=== PATIENT | male | born 1940 | race Caucasian/White ===

== ENCOUNTER → 2023-07-27 12:45 | Outpatient (REF) | payer MEDICARE, OTHER, SELFPAY | LOC: HWRCS 12:45 | PROVIDERS: ATTENDING PHYSICIAN Family Medicine | DX: R01.1 Cardiac murmur, unspecified (principal) | CPT/HCPCS: 93306 ==

== ENCOUNTER → 2023-10-22 07:36 | Outpatient (REF) | payer MEDICARE, OTHER, SELFPAY ==
[2023-10-22 08:53] LABS: Urine Albumin Negative (Neg - Trace); Urine Bilirubin Negative (Negative); Urine Character Clear (Clear); Urine Color Straw; Urine Glucose Negative (Negative); Urine Ketone Negative (Negative); Urine Leukocyte Negative (Negative); Urine Nitrite Negative (Negative); Urine Occult Blood Negative (Negative); Urine Specific Gravity 1.015 (<1.030); Urine Urobilinogen Negative (Neg - 1+)
[2023-10-22 08:55] LABS: % Basophils 0.6 % (0-2); % Eosinophils 3.4 % (0-6); % Immature Granulocytes 0.3 % (0-0.5); % Lymphocytes 20.9 % (20.5-51.1); % Monocytes 8.7 % (1.7-9.3); % Neutrophils 66.1 % (42.2-75.2); Absolute Eosinophils 0.2 10^3/uL (0-0.7); Absolute Lymphocytes 1.3 10^3/uL (1.2-3.4); Absolute Monocytes 0.5 10^3/uL (0.1-0.6); Absolute Neutrophils 4.1 10^3/uL (1.4-6.5); Hematocrit 42.7 % (39.0-52.0); Hemoglobin 14.2 g/dL (13.0-18.0); Mean Corp Hgb Conc. 33.3 g/dL (33.0-37.0); Mean Corpuscular Hgb 30.7 pg (27.0-31.0); Mean Corpuscular Volume 92.2 fL (80.0-94.0); Mean Platelet Volume 9.8 fL (7.4-10.4); Nucleated Red Blood Cells % 0 % (-); Platelet Count 191 10^3/uL (130-400); Red Blood Cell Count 4.63 10^6/uL (4.70-6.10); Red Cell Dist. Width 13.7 % (11.5-14.5); White Blood Cell Count 6.2 10^3/uL (4.8-10.8)
[2023-10-22 09:34] LABS: ALT (SGPT) 31 U/L (0-50); AST (SGOT) 40 U/L (17-59); Albumin 3.9 g/dl (3.5-5.0); Alkaline Phosphatase 79 U/L (38-126); Amylase 80 U/L (30-110); Blood Urea Nitrogen 24 mg/dl (9-20); Calcium 9.1 mg/dl (8.4-10.2); Carbon Dioxide 30 mmol/L (22-30); Chloride 103 mmol/L (98-107); Creatine Phosphokinase 337 U/L (55-170); GGTP 13 U/L (15-73); Glucose 86 mg/dl (70-99); HDL Cholesterol 50 mg/dl; Iron 80 ug/dl (49-181); LDL Cholesterol, Calculated 104 mg/dl; Lipase 66 U/L (23-300); Potassium 4.2 mmol/L (3.5-5.1); Sodium 140 mmol/L (135-145); Total Bilirubin 0.5 mg/dl (0.2-1.3); Total Cholesterol 165 mg/dl (50-199); Total Protein 6.5 g/dl (6.3-8.2); Triglyceride 56 mg/dl (10-149); Uric Acid 5.2 mg/dl (3.5-8.5); Very Low Density Lipoprotein 11 mg/dl (0-30); eGFR > 60.00
[2023-10-22 09:36] LABS: Erythrocyte Sed Rate 9 mm/hour (0-20)
[2023-10-22 09:44] LABS: Percent Saturation 32 % (20-50); Total Iron Binding Capacity 246 ug/dl (261-462)
[2023-10-22 10:09] LABS: C-Reactive Protein < 5.00 mg/L (0.0-10.00)
[2023-10-22 10:24] LABS: Vitamin D, 25-OH*** 48.8 ng/mL (30-80)
[2023-10-22 10:37] LABS: PSA, Total - Diagnostic 3.47 ng/ml (0.0-4.0); TSH Reflex To Free T4 1.18 uIU/ml (0.47-4.68)
[2023-10-22 10:46] LABS: Ferritin 97.1 ng/ml (17.9-464.0)
[2023-10-22 11:17] LABS: Folate 12.7 ng/ml (2.76-20); Vitamin B12 613 pg/ml (239-931)
[2023-10-22 12:10] LABS: Glycohemoglobin (HgbA1c) 5.8 % (4.0-5.6)
[2023-10-22 16:39] LABS: Rheumatoid Agglutinin Less Than 10 IU (<10 IU)
[2023-10-23 21:05] LABS: Zinc 91.7 ug/dL (60.0-120.0)
== END ==
LOC: HWLAB 07:36
PROVIDERS: ATTENDING PHYSICIAN Internal Medicine; FAMILY PHYSICIAN Family Medicine
DX: D50.9 Iron deficiency anemia, unspecified (principal); E78.2 Mixed hyperlipidemia; N40.1 Benign prostatic hyperplasia with lower urinary tract symptoms; R35.0 Frequency of micturition; R97.20 Elevated prostate specific antigen [PSA]; E11.9 Type 2 diabetes mellitus without complications; R94.5 Abnormal results of liver function studies; R74.8 Abnormal levels of other serum enzymes; E03.9 Hypothyroidism, unspecified; M10.9 Gout, unspecified; E60 Dietary zinc deficiency; E55.9 Vitamin D deficiency, unspecified; M12.9 Arthropathy, unspecified; D64.9 Anemia, unspecified; E53.8 Deficiency of other specified B group vitamins; E61.1 Iron deficiency; E83.42 Hypomagnesemia; N39.0 Urinary tract infection, site not specified; Z12.5 Encounter for screening for malignant neoplasm of prostate
CPT/HCPCS: 36415; 80053; 80061; 81003; 82150; 82306; 82550; 82607; 82728; 82746; 82977; 83036; 83540; 83550; 83690; 83735; 84153; 84443; 84550; 84630; 85025; 85045; 85652; 86140; 86430

== ENCOUNTER → 2023-12-05 13:11 | Outpatient (REF) | payer MEDICARE, OTHER, SELFPAY | LOC: RCS 13:11 | PROVIDERS: ATTENDING PHYSICIAN Internal Medicine Cardiovascular Disease; FAMILY PHYSICIAN Family Medicine | DX: I49.9 Cardiac arrhythmia, unspecified (principal); I47.10 Supraventricular tachycardia, unspecified; I49.3 Ventricular premature depolarization | CPT/HCPCS: 93225; 93226 ==

== ENCOUNTER → 2024-04-16 08:26 | Outpatient (REF) | payer MEDICARE, OTHER, SELFPAY ==
[2024-04-16 09:45] LABS: % Basophils 0.4 % (0-2); % Eosinophils 3.3 % (0-6); % Immature Granulocytes 0.3 % (0-0.5); % Lymphocytes 21.1 % (20.5-51.1); % Monocytes 11.6 % (1.7-9.3); % Neutrophils 63.3 % (42.2-75.2); Absolute Eosinophils 0.2 10^3/uL (0-0.7); Absolute Lymphocytes 1.6 10^3/uL (1.2-3.4); Absolute Monocytes 0.9 10^3/uL (0.1-0.6); Absolute Neutrophils 4.7 10^3/uL (1.4-6.5); Hematocrit 41.9 % (39.0-52.0); Hemoglobin 14.3 g/dL (13.0-18.0); Mean Corp Hgb Conc. 34.1 g/dL (33.0-37.0); Mean Corpuscular Hgb 30.9 pg (27.0-31.0); Mean Corpuscular Volume 90.5 fL (80.0-94.0); Mean Platelet Volume 10.4 fL (7.4-10.4); Nucleated Red Blood Cells % 0 % (-); Platelet Count 182 10^3/uL (130-400); Red Blood Cell Count 4.63 10^6/uL (4.70-6.10); Red Cell Dist. Width 13.8 % (11.5-14.5); White Blood Cell Count 7.4 10^3/uL (4.8-10.8)
[2024-04-16 10:55] LABS: PSA, Total - Diagnostic 3.25 ng/ml (0.0-4.0)
[2024-04-16 11:33] LABS: ALT (SGPT) 27 U/L (0-50); AST (SGOT) 36 U/L (17-59); Albumin 3.8 g/dl (3.5-5.0); Alkaline Phosphatase 62 U/L (38-126); Blood Urea Nitrogen 28 mg/dl (9-20); Calcium 8.9 mg/dl (8.4-10.2); Carbon Dioxide 30 mmol/L (22-30); Chloride 103 mmol/L (98-107); Glucose 89 mg/dl (70-99); HDL Cholesterol 47 mg/dl; LDL Cholesterol, Calculated 103 mg/dl; Potassium 4.6 mmol/L (3.5-5.1); Sodium 140 mmol/L (135-145); Total Bilirubin 0.5 mg/dl (0.2-1.3); Total Cholesterol 160 mg/dl (50-199); Total Protein 6.3 g/dl (6.3-8.2); Triglyceride 50 mg/dl (10-149); Very Low Density Lipoprotein 10 mg/dl (0-30); eGFR > 60.00
== END ==
LOC: HWLAB 08:26
PROVIDERS: ATTENDING PHYSICIAN Internal Medicine; FAMILY PHYSICIAN Family Medicine
DX: D50.9 Iron deficiency anemia, unspecified (principal); E78.2 Mixed hyperlipidemia; R97.20 Elevated prostate specific antigen [PSA]
CPT/HCPCS: 36415; 80053; 80061; 84153; 85025

== ENCOUNTER → 2024-09-04 07:21 | Outpatient (REF) | payer MEDICARE, OTHER, SELFPAY ==
[2024-09-04 10:07] LABS: Urine Albumin Negative (Neg - Trace); Urine Bilirubin Negative (Negative); Urine Character Clear (Clear); Urine Color Yellow; Urine Glucose Negative (Negative); Urine Ketone Negative (Negative); Urine Leukocyte Negative (Negative); Urine Nitrite Negative (Negative); Urine Occult Blood Negative (Negative); Urine Specific Gravity 1.015 (<1.030); Urine Urobilinogen Negative (Neg - 1+)
[2024-09-04 10:08] LABS: % Basophils 0.4 % (0-2); % Eosinophils 1.6 % (0-6); % Immature Granulocytes 0.6 % (0-0.5); % Lymphocytes 17.8 % (20.5-51.1); % Monocytes 9.6 % (1.7-9.3); Absolute Eosinophils 0.1 10^3/uL (0-0.7); Absolute Immature Granulocytes 0.1 10^3/uL (0-0.05); Absolute Lymphocytes 1.5 10^3/uL (1.2-3.4); Absolute Monocytes 0.8 10^3/uL (0.1-0.6); Absolute Neutrophils 5.7 10^3/uL (1.4-6.5); Hematocrit 42.5 % (39.0-52.0); Hemoglobin 14.4 g/dL (13.0-18.0); Mean Corp Hgb Conc. 33.9 g/dL (33.0-37.0); Mean Corpuscular Hgb 30.4 pg (27.0-31.0); Mean Corpuscular Volume 89.7 fL (80.0-94.0); Mean Platelet Volume 10.3 fL (7.4-10.4); Nucleated Red Blood Cells % 0 % (-); Platelet Count 182 10^3/uL (130-400); Red Blood Cell Count 4.74 10^6/uL (4.70-6.10); Red Cell Dist. Width 13.7 % (11.5-14.5); White Blood Cell Count 8.1 10^3/uL (4.8-10.8)
[2024-09-04 10:18] LABS: Erythrocyte Sed Rate 4 mm/hour (0-20)
[2024-09-04 11:14] LABS: ALT (SGPT) 31 U/L (0-50); AST (SGOT) 35 U/L (17-59); Albumin 3.8 g/dl (3.5-5.0); Alkaline Phosphatase 79 U/L (38-126); Amylase 64 U/L (30-110); Blood Urea Nitrogen 21 mg/dl (9-20); Calcium 9.3 mg/dl (8.4-10.2); Carbon Dioxide 29 mmol/L (22-30); Chloride 106 mmol/L (98-107); Creatine Phosphokinase 265 U/L (55-170); GGTP 14 U/L (15-73); Glucose 98 mg/dl (70-99); HDL Cholesterol 46 mg/dl; Iron 109 ug/dl (49-181); LDL Cholesterol, Calculated 110 mg/dl; Lipase 59 U/L (23-300); Potassium 4.2 mmol/L (3.5-5.1); Sodium 140 mmol/L (135-145); Total Bilirubin 0.7 mg/dl (0.2-1.3); Total Cholesterol 169 mg/dl (50-199); Total Protein 6.5 g/dl (6.3-8.2); Triglyceride 69 mg/dl (10-149); Uric Acid 5.2 mg/dl (3.5-8.5); Very Low Density Lipoprotein 13 mg/dl (0-30); eGFR > 60.00
[2024-09-04 11:24] LABS: Percent Saturation 43 % (20-50); Total Iron Binding Capacity 251 ug/dl (261-462)
[2024-09-04 11:32] LABS: Glycohemoglobin (HgbA1c) 5.4 % (4.0-5.6)
[2024-09-04 11:36] LABS: C-Reactive Protein < 5.00 mg/L (0.0-10.00)
[2024-09-04 11:59] LABS: Free T4 1.01 ng/dl (0.78-2.19)
[2024-09-04 12:12] LABS: PSA, Total - Screen 2.98 ng/ml (0.0-4.0); TSH 1.85 uIU/ml (0.47-4.68)
[2024-09-04 12:15] LABS: Ferritin 92.5 ng/ml (17.9-464.0)
[2024-09-04 13:40] LABS: Rheumatoid Agglutinin Less Than 10 IU (<10 IU)
[2024-09-04 14:07] LABS: Microalbumin, Random Urine 1.6 mg/dl (0.6-1.7)
[2024-09-04 15:07] LABS: Folate 8.6 ng/ml (2.76-20); Vitamin B12 567 pg/ml (239-931)
[2024-09-06 08:01] LABS: Zinc 77.6 ug/dL (60.0-120.0)
== END ==
LOC: HWLAB 07:21
PROVIDERS: ATTENDING PHYSICIAN Family Medicine; FAMILY PHYSICIAN Internal Medicine
DX: E11.9 Type 2 diabetes mellitus without complications (principal); E78.5 Hyperlipidemia, unspecified; R94.5 Abnormal results of liver function studies; R74.8 Abnormal levels of other serum enzymes; E03.9 Hypothyroidism, unspecified; M10.9 Gout, unspecified; E55.9 Vitamin D deficiency, unspecified; M12.9 Arthropathy, unspecified; D64.9 Anemia, unspecified; E53.8 Deficiency of other specified B group vitamins; E61.1 Iron deficiency; E83.42 Hypomagnesemia; N39.0 Urinary tract infection, site not specified; Z12.5 Encounter for screening for malignant neoplasm of prostate
CPT/HCPCS: 36415; 80053; 80061; 81003; 82043; 82150; 82306; 82550; 82570; 82607; 82728; 82746; 82977; 83036; 83540; 83550; 83690; 83735; 84439; 84443; 84550; 84630; 85025; 85045; 85652; 86140; 86430; G0103